=== PATIENT | male | born 1975 | race Caucasian/White ===

== ENCOUNTER 2016-09-21 17:31 | Emergency (ER) | payer OTHER ==
--- NOTE | 2016-09-21 19:05 | ER Document Report ---
ED Respiratory Problem - General Chief Complaint: head/chest cold Stated Complaint: COUGH Time seen by provider: 18:40 Mode of Arrival: Ambulatory Notes: 41-year-old male presents to ED for nasal drainage scratchy throat cough since last night. Has a history of bronchitis. Denies any fever. TRAVEL OUTSIDE OF THE [place] IN LAST 30 DAYS: No - HPI Patient complains to provider of: Cough, Other - Runny nose postnasal drip body aches and scratchy throat Onset: Yesterday Duration: Continuous, Worse/persistent Initiating Event: URI Quality of pain: Achy Severity: Mild Pain Level: 1 Cough: Nonproductive Sputum amount: None Associated symptoms: Cough, PND, Runny nose, Sinus pain/pressure, Sore Throat Similar symptoms previously: Yes Recently seen / treated by doctor: No Past Medical History - General Information source: Patient - Social History Smoking Status: Former Smoker Cigarette use (# per day): No Chew tobacco use (# tins/day): No Smoking Education Provided: No Frequency of alcohol use: Rare Drug Abuse: None Occupation: [employer] professor Lives with: Family Family History: Arthritis Patient has suicidal ideation: No Patient has homicidal ideation: No - Past Medical History Cardiac Medical History: Reports: Other - Mitral valve prolapse Pulmonary Medical History: Reports: Hx Bronchitis EENT Medical History: Reports: None Neurological Medical History: Reports: None Endocrine Medical History: Reports: None Renal/ Medical History: Reports: None Malignancy Medical History: Reports None GI Medical History: Reports: None Musculoskeltal Medical History: Reports Hx Arthritis Skin Medical History: Reports Hx Cellulitis Psychiatric Medical History: Reports: Hx Anxiety Traumatic Medical History: Reports: None Infectious Medical History: Reports: None Surgical Hx: Negative Past Surgical History: Reports: None - Immunizations Hx Diphtheria, Pertussis, Tetanus Vaccination: No Review of Systems - Review of Systems Constitutional: Recent illness. denies: Fever EENT: Nose discharge, Sinus discharge, Throat pain Cardiovascular: No symptoms reported Respiratory: Cough Gastrointestinal: No symptoms reported Genitourinary: No symptoms reported Male Genitourinary: No symptoms reported Musculoskeletal: No symptoms reported Skin: No symptoms reported Hematologic/Lymphatic: No symptoms reported Neurological/Psychological: No symptoms reported Physical Exam - Vital signs Vitals: Temp Pulse Resp BP Pulse Ox 98.4 F 83 18 138/94 H 98 09/21/16 17:46 09/21/16 17:46 09/21/16 17:46 09/21/16 17:46 09/21/16 17:46 Interpretation: Hypertensive - General General appearance: Appears well, Alert - HEENT Head: Normocephalic, Atraumatic Eyes: Normal Pupils: PERRL Ears: Normal External canal: Normal Tympanic membrane: Normal Sinus: Normal Nasal: Purulent discharge, Swelling Mouth/Lips: Normal Mucous membranes: Normal Pharynx: Post nasal drainage. No: Erythema, Exudate, Tonsillar hypertrophy Neck: Normal - Respiratory Respiratory status: No respiratory distress Chest status: Nontender Breath sounds: Nonproductive cough Chest palpation: Normal - Cardiovascular Rhythm: Regular Heart sounds: Normal auscultation Murmur: No - Abdominal Inspection: Normal Distension: No distension Bowel sounds: Normal Tenderness: Nontender Organomegaly: No organomegaly - Back Back: Normal, Nontender - Extremities General upper extremity: Normal inspection, Nontender, Normal color, Normal ROM , Normal temperature General lower extremity: Normal inspection, Nontender, Normal color, Normal ROM , Normal temperature, Normal weight bearing. No: Jose's sign - Neurological Neuro grossly intact: Yes Cognition: Normal Orientation: AAOx4 [place] Coma Scale Eye Opening: Spontaneous [place] Coma Scale Verbal: Oriented [place] Coma Scale Motor: Obeys Commands Harman Coma Scale Total: 15 Speech: Normal Motor strength normal: LUE, RUE, LLE, RLE Sensory: Normal - Psychological Associated symptoms: Normal affect, Normal mood - Skin Skin Temperature: Warm Skin Moisture: Dry Skin Color: Normal Course - Vital Signs Vital signs: Temp Pulse Resp BP Pulse Ox 98.2 F 80 16 132/92 H 100 09/21/16 20:32 09/21/16 20:32 09/21/16 20:32 09/21/16 20:32 09/21/16 20:32 Discharge - Discharge Clinical Impression: URI (upper respiratory infection) Qualifiers: URI type: unspecified URI Qualified Code(s): J06.9 - Acute upper respiratory infection, unspecified Condition: Stable Disposition: HOME, SELF-CARE Instructions: Family Physicians / Practices Additional Instructions: UPPER RESPIRATORY ILLNESS: You have a viral infection of the respiratory passages -- a "cold." This common infection causes nasal congestion, drainage, and often sore throat and cough. It is highly contagious. The disease usually lasts about 10 to 14 days. There is no "cure" for the viral infection -- it must run its course. If there is a complication, such as bacterial infection in the nose, sinuses, middle ear, or bronchial tubes, antibiotics may be required. The antibiotics won't affect the virus. Drink plenty of fluids. A humidifier may help. An expectorant medication or decongestant may make you more comfortable. Use acetaminophen or ibuprofen for fever or aches. See the doctor if fever persists over two days, if there is any significant worsening of your symptoms, or if you simply fail to improve as expected. DECONGESTANT MEDICATION: A decongestant medicine has been prescribed. Often this medicine is combined in the same tablet with an antihistamine or expectorant. This type of medicine is helpful in treating a bad cold or sinus condition, as well as in treatment of the nasal congestion of hay fever. It is not of much benefit for lung infections. Decongestant medicines are related to stimulants. They can cause an increase in blood pressure and heart rate. Persons with heart disease and high blood pressure should not take decongestants without discussing this with the physician. If you develop palpitations, chest pain, headache, or tremors, stop the medicine and consult your physician. COUGH-SUPPRESSANT & EXPECTORANT MEDICATION: You are to use a cough medication as needed for relief of symptoms. This medicine is a combination of an expectorant (to make the mucous thinner and more easily "coughed up") and a cough suppressant (to reduce the frequency of coughing). The cough-suppressant medicine is related to narcotics. You may experience mild nausea and sleepiness. Some patients who are very sensitive to narcotics may have stomach pain from this medicine. Taking the medicine with food reduces these side effects. Do not drive or work with machinery until you know how this medicine affects you. The expectorant should have no side effects. Iodine-containing expectorants (such as organidin) should not be taken by persons with active thyroid disease unless approved by your doctor. Call the doctor if you develop shortness of breath, hives, rash, itching, lightheadedness, or severe nausea and vomiting. USE OF ACETAMINOPHEN (Tylenol): Acetaminophen may be taken for pain relief or fever control. It's much safer than aspirin, offering a wider range of "safe" dosages. It is safe during . Some brand names are Tylenol, Panadol, Datril, Anacin 3, Tempra, and Liquiprin. Acetaminophen can be repeated every four hours. The following are maximum recommended dosages: >89 pounds or adults 650 mg to 900 mg Acetaminophen can be repeated every four hours. Maximum dose not to exceed 4000 mg a day. Salt and soda solution 1 quart of water 1 tablespoon of salt 1 teaspoon of baking soda Mixed 3 ingredients together and boil for 1 minute Placed in a covered quart jar Use 1/2 ounce of cold solution to gargle 3 times a day FOLLOW-UP CARE: If you have been referred to a physician for follow-up care, call the physician s office for an appointment as you were instructed or within the next two days. If you experience worsening or a significant change in your symptoms, notify the physician immediately or return to the Emergency Department at any time for re-evaluation.
[2016-09-21 20:34] VITALS: BP 132/92
== END 2016-09-21 20:25 | disposition home or self-care (01) ==
LOC: ER 17:31
DX: J06.9 Acute upper respiratory infection, unspecified (principal); R51 Headache; Z87.891 Personal history of nicotine dependence
CPT/HCPCS: 99283